=== PATIENT | female | born 1960 | race Caucasian/White ===

== ENCOUNTER 2017-01-02 08:56 | Emergency (ER) | payer OTHER ==
[2017-01-02 10:12] VITALS: BP 141/58
--- NOTE | 2017-01-02 10:45 | UC ---
Minor Trauma HPI - HPI Summary HPI Summary: 57 YEAR OLD FEMALE PRESENTS WITH RIGHT SIDED RIB PAIN AFTER LIFTING A HEAVY BOX. - History of Current Complaint Chief Complaint: UCBackPain Stated Complaint: RIGHT SIDE RIB AREA PAIN Time Seen by Provider: 01/02/17 10:41 Hx Obtained From: Patient Onset/Duration: Sudden Onset Severity Initially: Moderate Severity Currently: Moderate Pain Scale Used: 0-10 Numeric - 7 Mechanism Of Injury: Twisted, Unknown - HEAVY LIFTING Aggravating Factor(s): Coughing Alleviating Factor(s): Rest - Allergies/Home Medications Allergies/Adverse Reactions: Allergies Allergy/AdvReac Type Severity Reaction Status Date / Time Morphine and Related Allergy Severe Nausea And Verified 01/02/17 09:46 Vomiting Home Medications: Home Medications Albuterol HFA INHALER* [Ventolin HFA Inhaler*] 2 puff INH Q6H PRN 01/02/17 [ History Confirmed 01/02/17] Apixaban* [Eliquis*] 5 mg PO BID 01/02/17 [History Confirmed 01/02/17] Aspirin Low Dose CHEW TAB* [Aspirin Low Dose TAB*] 81 mg PO DAILY 01/02/17 [ History Confirmed 01/02/17] Atenolol TAB* [Tenormin TAB* 25 MG] 25 mg PO DAILY 01/02/17 [History Confirmed 01/02/17] Atorvastatin* [Lipitor 10 MG*] 10 mg PO DAILY 01/02/17 [History Confirmed ] Enalapril TAB* [Vasotec TAB*] 10 mg PO DAILY 01/02/17 [History Confirmed ] Esomeprazole(NF) [Nexium(NF)] 40 mg PO DAILY 01/02/17 [History Confirmed ] Fexofenadine (NF) [Emma 180 (NF)] 180 mg PO 01/02/17 [History] Hydrochlorothiazide TAB* [Hydrodiuril TAB*] 12.5 mg PO DAILY 01/02/17 [History Confirmed 01/02/17] Insulin Glargine (Nf) [Toujeo Solostar Pen (NF)] 130 unit SC BEDTIME 01/02/17 [ History Confirmed 01/02/17] Insulin LISPRO* [HumaLOG*] 0 units SUBCUT DIRECTED 01/02/17 [History Confirmed 01/02/17] Liraglutide [Victoza] 1.8 SC DAILY 01/02/17 [History] Metformin HCl [Glucophage] 1,000 mg PO BID 01/02/17 [History Confirmed 01/02/17] PMH/Surg Hx/FS Hx/Imm Hx Previously Healthy: Yes - Surgical History Surgical History: Yes Surgery Procedure, Year, and Place: appy. tubal ligation. . hysterectomy - Social History Alcohol Use: None Substance Use Type: None Smoking Status (MU): Former Smoker Type: Cigarettes When Did the Patient Quit Smoking/Using Tobacco: 30 YRS AGO Review of Systems Constitutional: Negative Skin: Negative Eyes: Negative ENT: Negative Respiratory: Negative Cardiovascular: Negative Gastrointestinal: Negative Genitourinary: Negative Motor: Negative Neurovascular: Negative Musculoskeletal: Other: - RIGHT RIB PAIN Neurological: Negative Psychological: Negative All Other Systems Reviewed And Are Negative: Yes Physical Exam Triage Information Reviewed: Yes Vital Signs: Initial Vital Signs Temp 36.6 C 01/02/17 09:52 Pulse 79 01/02/17 09:52 Resp 20 01/02/17 09:52 BP 141/58 01/02/17 09:52 Pulse Ox 99 01/02/17 09:52 Eye Exam: Normal ENT Exam: Normal Dental Exam: Normal Neck exam: Normal Neck: Positive: 1 Respiratory Exam: Normal Cardiovascular Exam: Normal Abdominal Exam: Normal Musculoskeletal: Positive: Other: - RIGHT RIB PAIN Neurological Exam: Normal Psychological Exam: Normal Skin Exam: Normal Minor Trauma Course/Dx - Differential Dx/Diagnosis Provider Diagnoses: COSTOCHONDRITIS Discharge - Discharge Plan Condition: Stable Disposition: HOME Prescriptions: Acetaminophen TAB* [Tylenol TAB*] 650 mg PO Q6H PRN #100 tab PRN Reason: Pain Methocarbamol TAB* [Robaxin 500 MG TAB*] 500 mg PO TID PRN #30 tab PRN Reason: Spasms - Back Patient Education Materials: Costochondritis (ED) Referrals: ANDERIA Lea [Primary Care Provider] -
== END 2017-01-02 10:55 | disposition home or self-care (01) ==
LOC: UCCORT 08:56
DX: M94.0 Chondrocostal junction syndrome [Tietze] (principal); Z87.891 Personal history of nicotine dependence
CPT/HCPCS: 99212; G0463